=== PATIENT | female | born 1950 | race Caucasian/White ===

== ENCOUNTER 2022-10-19 13:29 | Outpatient (CLI) | payer MEDICARE | END 2022-10-19 13:30 | disposition home or self-care (01) | LOC: CSHWCC 13:29 | PROVIDERS: ATTEND Nurse Practitioner Family | DX: E11.621 Type 2 diabetes mellitus with foot ulcer (principal); L97.412 Non-pressure chronic ulcer of right heel and midfoot with fat layer exposed | CPT/HCPCS: 11042; 97139; G0463; 99203 ==